=== PATIENT | female | born 1980 | race African-American/Black ===

== ENCOUNTER 2016-08-22 20:46 | Emergency (ER) | payer OTHER ==
[~2016-08-22] VITALS: Ht 167.6 cm; Wt 81.2 kg
[2016-08-22 20:49] VITALS: BP 134/60
--- NOTE | 2016-08-22 22:19 | NUR ---
PT TAKEN TO BED 7
--- NOTE | 2016-08-22 22:34 | NUR ---
Dr. Taylor evaluating patient at bedside.
--- NOTE | 2016-08-22 22:40 | NUR ---
36Y F CAME TO ER C/O OF RASH TO BOTH HANDS, DENIES PAIN BUT WITH ITCHING AND BURNING. V/S STABLE.
[2016-08-22 22:51] VITALS: BP 134/60
--- NOTE | 2016-08-22 22:52 | NUR ---
Patient discharged with v/s stable. Written and verbal after care instructions given and explained BY DR JOSEPH Patient alert, oriented and verbalized understanding of instructions. Ambulatory with steady gait. All questions addressed prior to discharge. ID band removed. Patient advised to follow up with PMD. Rx of PREDNISONE given. Patient educated on indication of medication including possible reaction and side effects. Opportunity to ask questions provided and answered.
== END 2016-08-22 22:52 | disposition home or self-care (01) ==
LOC: MED 20:46
DX: L25.9 Unspecified contact dermatitis, unspecified cause (principal); R03.0 Elevated blood-pressure reading, without diagnosis of hypertension
CPT/HCPCS: 99283